=== PATIENT | male | born 1990 | race Caucasian/White ===

== ENCOUNTER 2021-12-28 23:30 | Emergency (ER) | payer MEDICAID, SELFPAY ==
[2021-12-28 23:35] VITALS: BP 130/78; PULSE 85; RESP 16; TEMP 36.7; O2SAT 97
--- NOTE | 2021-12-29 00:15 | CRLHL7_ITS ---
For Patients: As a result of the Cures Act, medical imaging exams and procedure reports are released immediately into your electronic medical record. You may view this report before your referring provider. If you have questions, please contact your health care provider. INDICATION: Right lower quadrant abdominal pain TECHNIQUE: CT Abdomen and pelvis without i.v. contrast. Coronal and sagittal reformats were obtained. COMPARISON: None FINDINGS: Lower chest: Unremarkable. Liver: Unremarkable. Spleen: Unremarkable. Pancreas: Unremarkable. Gallbladder: Previous cholecystectomy noted with no significant intra- or extrahepatic biliary ductal dilatation seen. Kidney: Unremarkable. No kidney or ureteral stones or obstruction seen. Adrenal: Unremarkable. Bowel: Unremarkable. The appendix is normal in appearance and size. Vascular: Unremarkable. Lymph: Unremarkable. Peritoneum: Unremarkable. No pneumoperitoneum is seen. No significant ascites is noted. Pelvis: Unremarkable. Soft tissue: Unremarkable. Bone: Unremarkable for age. IMPRESSION: 1. No CT correlate for the patient`s symptoms seen. Dictated by Héctor Ervin MD @ 12/29/2021 12:59:01 AM Please note that all CT scans at this facility use dose modulation, iterative reconstruction, and/or weight-based dosing when appropriate to reduce radiation dose to as low as reasonably achievable. Dictated by: Héctor Ervin MD @ 12/29/2021 00:59:05 (Electronically Signed)
--- NOTE | 2021-12-29 00:17 | ED.GENADULT ---
HPI - General Adult General Time Seen by Provider: 00:16 Date Seen: 12/29/21 Chief complaint: Abdominal Pain Stated complaint: Abdominal pain Source: patient History of Present Illness HPI narrative: 31-year-old male who presents today with right lower quadrant abdominal pain starting yesterday about 5:00 a.m.. Pain is constant, worse with movement and standing. He has not taken anything for this. He denies nausea, vomiting, diarrhea, constipation, urinary symptoms. No fever chills. Pain is aching and occasionally sharp. Prior cholecystectomy, traumatic hemopneumothorax, an ex lap with possible splenectomy. Related Data Home Medications Medication Instructions Recorded Confirmed escitalopram oxalate 20 mg tablet 40 mg PO DAILY 12/28/21 12/28/21 hydroxyzine HCl 25 mg tablet 25 mg PO Q8H PRN 12/28/21 12/28/21 Allergies Allergy/AdvReac Type Severity Reaction Status Date / Time gabapentin Allergy Severe Agitated Verified 12/28/21 23:57 Review of Systems Status of ROS: Reports: 10 or more systems reviewed and unremarkable except as noted in History and below [facility] Medical History No significant past medical history Surgical History No significant past surgical history Social History Smoking Status: Current every day smoker What tobacco products do you use: cigarettes Do you use any of these nicotine containing products: None Second hand tobacco smoke exposure: Yes How often do you have a drink containing alcohol: 2-3 times a week AUDIT-C Alcohol total score: 3 Non-prescribed substance use: denies use service: No Exam Const: Documenting provider has reviewed patient's vital signs: yes Common normals: no apparent distress, oriented x3, alert and well nourished HENMT: Common normals: normocephalic, head/scalp atraumatic, external ears normal and external nose normal Head and scalp: normocephalic and atraumatic Nose: external nose normal External ear: external ears normal Eye: Common normals: PERRL and conjunctivae normal Conjunctiva: conjunctiva(e) normal Pupil: PERRL Neck & C-Spine: Common normals: full ROM, no lymphadenopathy and supple Chest: Common normals: palpation of chest normal Resp: Common normals: normal respiratory effort and clear to auscultation bilaterally Auscultation: clear to auscultation bilaterally Cardio: Common normals: regular rate, regular rhythm and no murmurs Rate: regular rate Rhythm: regular rhythm GI: Common normals: Normal to inspection, nondistended, normoactive bowel sounds present Palpation: tender Details: RLQ and other (Positive Carnett sign) : Common normals: no CVA tenderness Bladder/kidney exam: no CVA tenderness Back & Pelvis: Common normals: no CVA tenderness and thoracic and lumbar spine normal to inspection Extremity: Common normals: normal to inspection, full ROM and no pedal edema Neuro: Common normals: oriented x3, CN's II-XII intact bilaterally and no focal motor deficits Sensorium/orientation: alert Psych: Common normals: mental status grossly normal Skin: Common normals: no rashes or lesions noted General skin exam: no rashes or lesions noted Course Reevaluation(s) Reevaluation #1: labs reassuring, CT scan does not demonstrate any acute findings to account for patient's symptoms. No evidence for acute appendicitis or hernia. Patient is stable for discharge home with continued [id number] pain medication and follow up With primary care. Discussed findings with patient, questions answered and stable for discharge. Toradol IV ordered prior to discharge to help with pain management. Medical Decision Making MDM Narrative Medical decision making narrative: Patient seen and examined, prior records reviewed. Differential diagnosis includes but not limited to gastritis, gastric ulcer, colitis, pancreatitis, acute cholecystitis, diverticulitis, appendicitis, urinary tract infection, bowel obstruction, perforation, kidney stone. patient presents with nonradiating right lower quadrant pain. History of prior abdominal surgeries Including cholecystectomy, exploratory laparotomy after trauma, partial small-bowel resection due to trauma. Vitally stable on initial exam, right lower quadrant tenderness and also some right inguinal tenderness but no palpable hernia. Labs and CT scan are ordered. Medical Records Medical records reviewed: Yes I reviewed the patient's medical records Lab Data Lab results reviewed: Yes I reviewed the patient's lab results Lab results narrative: Labs reassuring with normal white blood cell count, urinalysis with some bacteria Labs: Lab Results 12/29/21 12/29/21 12/29/21 Range/Units 00:15 00:20 00:20 WBC 9.61 (4.50-11.00) K/uL RBC 4.74 (4.30-5.90) m/uL Hgb 14.3 (13.5-17.5) gm/dL Hct 42.5 (37.0-53.0) % MCV 90 (80-100) fL MCH 30 (26-34) pg MCHC 34 (32-36) gm/dL RDW Coeff of Kristina 13.3 (11.5-15.5) % Plt Count 244 (140-440) K/uL Neut % (Auto) 45.3 (42.0-72.0) % Lymph % (Auto) 42.7 (20-44) % Yell % (Auto) 6.7 (0.0-11.0) % Eos % (Auto) 4.7 (0.0-7.0) % Baso % (Auto) 0.4 (0.0-3.0) % Neut # (Auto) 4.36 (1.7-7.0) K/uL Lymph # (Auto) 4.10 H (0.90-2.90) K/uL Yell # (Auto) 0.60 (0.00-0.90) K/UL Eos # (Auto) 0.45 (0.00-0.50) K/uL Baso # (Auto) 0.04 (0.00-0.30) K/uL Abs Immat Gran (auto) 0.02 (0.00-0.30) K/uL Sodium 139 (135-149) mmol/L Potassium 3.9 (3.6-5.1) mmol/L Chloride 105 (96-114) mmol/L Carbon Dioxide 28 (20-32) mmol/L BUN 17 (5-24) mg/dL Creatinine 0.8 (0.5-1.5) mg/dL Glucose 122 H (60-115) mg/dL Calcium 8.9 (8.4-10.6) mg/dL Urine Color Yellow (Yellow) Urine Appearance Clear (Clear) Urine pH 6.0 (5.0-8.5) Ur Specific Henrietta >= 1.030 (1.000-1.030) Urine Protein Negative (Negative) Urine Glucose (UA) Negative (Negative) Urine Ketones Negative (Negative) Urine Blood Negative (Negative) Urine Nitrite Negative (Negative) Urine Bilirubin Negative (Negative) Urine Urobilinogen 0.2 (0.2-1.0) Ur Leukocyte Esterase Negative (Negative) Urine RBC 0-2 (0-2) Urine WBC 0-2 (0-5) Ur Squamous Epith Cells Few (None-Few) Other Sediment 0 (None) Urine Bacteria Few A (None) Urine Mucus Many A (None) Imaging Data CT scan - abdomen: Attestation: I have reviewed the pertinent imaging results. My impression: No acute intra-abdominal findings Radiologist's impression: agrees Discharge Plan Discharge Clinical Impression: Abdominal pain, acute, right lower quadrant Patient Disposition: Home, Self-Care Condition: Improved Instructions: Abdominal Pain (ED) Additional Instructions: No definite intra-abdominal source free pain is found today. CT scan does not show any signs of appendicitis or hernia. Your blood counts are normal and the urine test does not show signs of infection. Take Tylenol and ibuprofen as needed for pain, warm packs or cold packs as desired. Follow-up with your primary care doctor in 1-2 days. Activity Level: Activity as Tolerated Discharge Diet: Regular Prescriptions: No Action escitalopram oxalate 20 mg tablet 40 mg PO DAILY 0RF Label Comments: TAKE 1 TABLET BY MOUTH DAILY hydroxyzine HCl 25 mg tablet 25 mg PO Q8H PRN0RF Follow Up/Referrals: Provider,Not a Local [Primary Care Provider] - Stand Alone Forms: [employer] Info Instructions
[2021-12-29 00:29] LABS: Basophils Absolute Auto 0.04 K/uL (0.00-0.30); Basophils Percent Auto 0.4 % (0.0-3.0); Eosinophils Absolute Auto 0.45 K/uL (0.00-0.50); Eosinophils Percent Auto 4.7 % (0.0-7.0); Hematocrit 42.5 % (37.0-53.0); Hemoglobin* 14.3 gm/dL (13.5-17.5); Immature Granulocytes Abs Auto 0.02 K/uL (0.00-0.30); Lymphocytes Percent Auto 42.7 % (20-44); Mean Corpuscular HGB Conc 34 gm/dL (32-36); Mean Corpuscular Hemoglobin 30 pg (26-34); Mean Corpuscular Volume 90 fL (80-100); Monocytes Percent Auto 6.7 % (0.0-11.0); Neutrophils Absolute Auto 4.36 K/uL (1.7-7.0); Neutrophils Percent Auto 45.3 % (42.0-72.0); Platelet Count* 244 K/uL (140-440); RDW Coefficient of Variation % 13.3 % (11.5-15.5); Red Blood Count 4.74 m/uL (4.30-5.90); White Blood Count* 9.61 K/uL (4.50-11.00)
[2021-12-29 00:33] LABS: Slide Review Reflex No
[2021-12-29 00:36] LABS: Appearance Urine Clear (Clear); Bilirubin Urine Negative (Negative); Blood Urine Negative (Negative); Color Urine Yellow (Yellow); Glucose Urine Negative (Negative); Ketones Urine Negative (Negative); Leukocyte Esterase Urine Negative (Negative); Nitrite Urine Negative (Negative); Protein Urine Negative (Negative); Specific Gravity Urine >= 1.030 (1.000-1.030); Urobilinogen Urine 0.2 (0.2-1.0)
[2021-12-29 00:42] LABS: Chloride* 105 mmol/L (96-114); Sodium* 139 mmol/L (135-149)
[2021-12-29 00:43] LABS: Potassium* 3.9 mmol/L (3.6-5.1)
[2021-12-29 00:44] LABS: Bacteria Urine Few; Mucus Urine Many; Other Sediment Urine 0; RBC Urine 0-2 (0-2); Squamous Epithelial Cell Urine Few (None-Few); WBC Urine 0-2 (0-5)
[2021-12-29 00:45] LABS: Carbon Dioxide* 28 mmol/L (20-32); Creatinine* 0.8 mg/dL (0.5-1.5); Estimated Glomerular Filt Rate 121.34
[2021-12-29 00:46] LABS: Blood Urea Nitrogen* 17 mg/dL (5-24); Calcium* 8.9 mg/dL (8.4-10.6); Glucose* 122 mg/dL (60-115)
[2021-12-29] MEDS: KETOROLAC 15 MG/ML inj IVP (01:02)
[2021-12-29 01:25] VITALS: BP 125/70; PULSE 82; RESP 16; TEMP 36.7; O2SAT 97
[2021-12-29 01:27] VITALS: BP 125/70; PULSE 80; RESP 16; TEMP 36.7
== END 2021-12-29 01:28 | disposition home or self-care (01) ==
PROVIDERS: Emergency Provider Family Medicine
DX: R10.31 Right lower quadrant pain (principal)
CPT/HCPCS: 36415; 74176; 80048; 81001; 85025; 87086; 96374; 99284; 99285; J1885

== ENCOUNTER 2022-01-31 23:10 | Emergency (ER) | payer MEDICAID, SELFPAY ==
[2022-01-31 23:18] VITALS: BP 118/84; PULSE 99; RESP 16; TEMP 36.7; O2SAT 98; BMI 27.1
--- NOTE | 2022-02-01 00:05 | CRLHL7_ITS ---
For Patients: As a result of the Cures Act, medical imaging exams and procedure reports are released immediately into your electronic medical record. You may view this report before your referring provider. If you have questions, please contact your health care provider. INDICATION: Bilateral chest and axillary pain TECHNIQUE: Frontal view chest, single oblique view of both ribs. COMPARISON: None FINDINGS: Cardiovascular and mediastinum: Heart size and vasculature are normal in caliber and appearance. Mediastinum is within normal limits. Lungs and pleural spaces: Lungs are clear. No sign of infiltrate or mass. No sign of pleural effusion. No pneumothorax. Bones and soft tissues: Detailed oblique images of the ribs demonstrate no acute fractures or bone lesions. There are old fractures of the right 3rd through 6th ribs. IMPRESSION: No acute rib fracture. No acute intrathoracic abnormality. Old fractures of the right 3rd through 6th ribs. Dictated by Pamela Holguin MD @ 02/01/2022 12:42:37 AM (Electronically Signed)
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
== END 2022-02-01 01:06 | disposition home or self-care (01) ==
PROVIDERS: Emergency Provider Family Medicine
DX: R07.89 Other chest pain (principal); W51.XXXA Accidental striking against or bumped into by another person, initial encounter; S50.11XA Contusion of right forearm, initial encounter
CPT/HCPCS: 71111; 99283